=== PATIENT | female | born 1935 | race Two or more races ===

== ENCOUNTER 2017-01-28 21:24 | Inpatient (IN) | payer MEDICAID ==
[~2017-01-28] VITALS: Ht 165.1 cm; Wt 92.5 kg
[~2017-01-28 21:24] MED LIST: AMITRIPTYLINE H25 MG ORAL; ATORVASTATIN CA20 MG ORAL; CAPTOPRIL25 M1 PO; FOLIC ACID1 MG ORAL; LEVOXINE PO; METFORMIN HCL500 M1 ORAL; NOVOLIN N100 UNIT/1 SUBQ; SPIRONOLACTONE25 MG PO; TENORMIN50 MG ORAL
--- NOTE | 2017-01-28 21:44 | Emergency Room Report ---
History of Present Illness General Chief Complaint: Altered Level of Consciousness Source: Family Member, EMS Present Illness HPI Is an 81-year-old female with multiple medical problems including CAD with stents, diabetes, frequent infection. She presents with altered mental status. Onset this afternoon. More confused her daughter. Decreased appetite. No nausea no vomiting. No fever or chills. No focal deficit. Blood sugar was very high at home. Per EMS over 400. Allergies: Coded Allergies: No Known Allergies (Unverified , 12/23/12) Patient History Past Medical History: see triage record, old chart reviewed, DM, HTN Past Surgical History: other Pertinent Family History: none Social History: Denies: smoking Last Menstrual Period: n/a Now: No Immunizations: other Reviewed Nursing Documentation: PMH: Agreed, PSxH: Agreed Nursing Documentation-PMH Hx Cardiac Problems: Yes - stents Hx Hypertension: Yes Hx Diabetes: Yes Review of Systems Constitutional: Reports: malaise, weakness Eye: Denies: eye pain, blurred vision ENT: Denies: ear pain, nose congestion, throat swelling Respiratory: Denies: cough, shortness of breath Cardiovascular: Denies: chest pain, palpitations Gastrointestinal: Denies: abdominal pain, diarrhea, nausea, vomiting Musculoskeletal: Denies: back pain, joint pain Skin: Denies: rash Neurological: Denies: headache, numbness Endocrine: Denies: increased thirst, increased urine Hematologic/Lymphatic: Denies: easy bruising All Other Systems: negative except mentioned in HPI Physical Exam Vital Signs Date Time Temp Pulse Resp B/P (MAP) Pulse Ox O2 Delivery O2 Flow Rate FiO2 01/28/17 21:18 98.8 112 16 116/86 98 Room Air vitals with tachycardia Sp02 EP Interpretation: reviewed, normal General Appearance: well appearing, other - Ill-appearing Head: normocephalic, atraumatic Eyes: bilateral eye PERRL, bilateral eye EOMI ENT: hearing grossly normal, normal pharynx Neck: full range of motion, supple, no meningismus Respiratory: chest non-tender, lungs clear, normal breath sounds Cardiovascular #1: regular rate, rhythm, no murmur Gastrointestinal: normal bowel sounds, non tender, no mass, no organomegaly, no bruit, non-distended Musculoskeletal: back normal, normal range of motion Neurologic: grossly normal Psychiatric: mood/affect normal Skin: warm/dry Medical Decision Making Diagnostic Impression: Primary Impression: Altered level of consciousness Additional Impressions: Encephalopathy acute Hyperglycemia due to type 1 diabetes mellitus Lactic acid acidosis ER Course Patient presents with an altered mental status. This may be secondary to elevated glucose. no evidence of DKA. She may have infectious cause like a viral infection. No obvious bacterial infection. Lungs are clear. Her analysis negative. No evidence of acute abdomen. IV fluid given. Will repeat lactic acid. CT head negative. I discussed the case with primary care DrRodriguez who doesn't admit here anymore. Patient emitted to Dr. Headley. Lab Results Impression labs with elevated glucose and lactic acid. EKG Diagnostic Results Rate: normal Rhythm: NSR ST Segments: no acute changes Rhythm Strip Diag. Results Rhythm Strip Time: 21:44 EP Interpretation: yes Rate: 100 Rhythm: NSR, no PVC's, no ectopy Chest X-Ray Diagnostic Results Chest X-Ray Diagnostic Results : Chest X-Ray Ordered: Yes # of Views/Limited/Complete: 1 View Indication: Shortness of Breath EP Interpretation: Yes Interpretation: no consolidation, no effusion, no pneumothorax, no acute cardiopulmonary disease Impression: No acute disease Electronically Signed by: Electronically signed by Shayne Moncada MD CT/MRI/US Diagnostic Results CT/MRI/US Diagnostic Results : Imaging Test Ordered: CT head Impression read by radiologist as negative. Atrophy. Last Vital Signs Date Time Temp Pulse Resp B/P (MAP) Pulse Ox O2 Delivery O2 Flow Rate FiO2 01/28/17 21:18 98.8 112 16 116/86 98 Room Air Status: improved Disposition: ADMITTED INPATIENT Condition: Serious SHAYNE MONCADA M.D. Jan 28, 2017 21:44
[2017-01-28] MEDS ORDERED: NS 1000ml 2,900 ML IVLG ONE (21:45)
[2017-01-28 22:07] LABS: BASOPHILS % (AUTO) 0.3 % (0.0-2.0); LYMPHOCYTES % (AUTO) 9.4 % (20.0-45.0); MEAN CORPUSCULAR HEMOGLOBIN 23.2 PG (27.0-31.0); MEAN CORPUSCULAR VOLUME 77 FL (80-99); MEAN PLATELET VOLUME 6.4 FL (6.5-10.1); MONOCYTES % (AUTO) 6.6 % (1.0-10.0); NEUTROPHILS % (AUTO) 83.7 % (45.0-75.0); PLATELET COUNT 298 K/UL (150-450); RED BLOOD COUNT 3.97 M/UL (4.20-5.40); RED CELL DISTRIBUTION WIDTH 13.2 % (11.6-14.8); WHITE BLOOD COUNT 9.8 K/UL (4.8-10.8)
[2017-01-28] MEDS ORDERED: CLARITIN10 M2 ORAL (22:19)
[2017-01-28] MEDS ORDERED: AMITIZA24 MCG ORAL (22:19)
[2017-01-28] MEDS ORDERED: ATORVASTATIN CA40 MG ORAL (22:19)
[2017-01-28] MEDS ORDERED: CITALOPRAM HBR40 M1 ORAL (22:19)
[2017-01-28] MEDS ORDERED: CALMOSEPTINE O3.5 G1 TP (22:19)
[2017-01-28] MEDS ORDERED: AMBIEN5 MG ORAL (22:19)
[2017-01-28 22:24] LABS: INR 0.9 (0.9-1.1); PROTHROMBIN TIME 9.9 SEC (9.30-11.50)
[2017-01-28 22:31] LABS: TROPONIN I < 0.30 ng/mL (<=0.30)
[2017-01-28 22:35] LABS: ALANINE AMINOTRANSFERASE 11 U/L (3-33); ALBUMIN/GLOBULIN RATIO 1.5 (1.0-2.7); ANION GAP 15 (5-15); ASPARTATE AMINO TRANSFERASE 12 U/L (5-40); CARBON DIOXIDE 26 mEQ/L (20-30); CHLORIDE 94 mEQ/L (98-107); CREATININE 0.9 mg/dL (0.5-0.9); HEMOLYSIS 0; POTASSIUM 4.6 mEQ/L (3.4-4.9); SODIUM 135 mEQ/L (135-145); TOTAL PROTEIN 6.5 g/dL (6.6-8.7)
[2017-01-28 22:37] LABS: REFLEX LACTIC ACID YES OR NO YES
[2017-01-28 22:45] LABS: CKMB 1.7 ng/mL (< 3.8)
[2017-01-28 22:54] VITALS: BP 138/56
[2017-01-28 23:02] LABS: APPEARANCE,URINE CLEAR; KETONES,URINE NEGATIVE (NEGATIVE); LEUKOCYTE ESTERASE ,URINE 1+ (NEGATIVE); NITRITE,URINE NEGATIVE (NEGATIVE); PH,URINE 6.5 (4.5-8.0); PROTEIN,URINE NEGATIVE (NEGATIVE); UROBILINOGEN,URINE NORMAL MG/DL (0.0-1.0)
[2017-01-28] MEDS ORDERED: DOXEPIN HCL25 MG ORAL (23:13)
[2017-01-28] MEDS ORDERED: MAGNESIUM400 M2 PO (23:13)
[2017-01-28] MEDS ORDERED: IRON160 MG PO (23:13)
[2017-01-28] MEDS ORDERED: JANUVIA25 MG ORAL (23:13)
[2017-01-28] MEDS ORDERED: FLUOCINOLONE AC15 G1 TP (23:13)
[2017-01-28] MEDS ORDERED: FUROSEMIDE20 M1 ORAL (23:13)
[2017-01-28] MEDS ORDERED: ISOSORBIDE MONO10 MG PO (23:13)
[2017-01-28] MEDS ORDERED: METFORMIN HCL1000 M1 ORAL (23:13)
[2017-01-28] MEDS ORDERED: KONDREMUL2.5 ML/5 M PO (23:13)
[2017-01-28] MEDS ORDERED: MICARDIS80 MG ORAL (23:13)
[2017-01-28] MEDS ORDERED: LEVOXYL150 MCG ORAL (23:13)
[2017-01-28] MEDS ORDERED: TEMOVATE15 G1 TP (23:13)
[2017-01-28] MEDS ORDERED: LIPITOR20 MG ORAL (23:13)
[2017-01-28] MEDS ORDERED: MIRALAX17 G2 ORAL (23:13)
[2017-01-28] MEDS ORDERED: ECOTRIN325 MG ORAL (23:13)
[2017-01-28] MEDS ORDERED: TRESIBA FL100 UNIT/1 SQ (23:13)
[2017-01-28] MEDS ORDERED: FOLIC ACID1 MG ORAL (23:13)
[2017-01-28] MEDS ORDERED: STARLIX60 MG ORAL (23:13)
[2017-01-28] MEDS ORDERED: NITROGLYCERIN0.4 MG SL (23:13)
[2017-01-28] MEDS ORDERED: DICLOFENAC SODI50 MG ORAL (23:13)
[2017-01-28 23:15] LABS: BACTERIA,URINE FEW /HPF; RBC,URINE 0-2 /HPF (0 - 2); SQUAMOUS EPITHELIAL CELL,UR FEW /LPF (NONE/OCC)
[2017-01-29 00:57] VITALS: BP 157/86
[2017-01-29] MEDS ORDERED: Calmoseptine Oint 4oz TOPIC PRN (01:00)
[2017-01-29] MEDS ORDERED: Nitroglycerin Subl 0.4mg tab SL PRN (01:00)
[2017-01-29] MEDS ORDERED: Miralax 17gm pkt ORAL PRN (01:00)
[2017-01-29 04:00] VITALS: BP 136/72
[2017-01-29] MEDS ORDERED: NovoLOG Insulin Flexpen SUBQ SCH (06:30)
--- NOTE | 2017-01-29 07:51 | General Progress Note ---
Assessment/Plan Problem List: (1) Lactic acid acidosis ICD Codes: E87.2 - Acidosis SNOMED: 10611668 (2) Altered level of consciousness ICD Codes: R40.4 - Transient alteration of awareness SNOMED: 5197391 (3) Hyperglycemia due to type 1 diabetes mellitus ICD Codes: E10.65 - Type 1 diabetes mellitus with hyperglycemia SNOMED: 469300483390341, 52261154 (4) Encephalopathy acute ICD Codes: G93.40 - Encephalopathy, unspecified SNOMED: 8843871 Status Narrative start Levemir 24 units daily start Novolog 8 units ac tid + SSI do not use Metformin in the context of lactic acidosis Subjective Allergies: Coded Allergies: No Known Allergies (Unverified , 12/23/12) All Systems: reviewed and negative except above Subjective Is an 81-year-old female with multiple medical problems including CAD with stents, diabetes, frequent infection. She presents with altered mental status. Onset this afternoon. More confused her daughter. Decreased appetite. No nausea no vomiting. No fever or chills. No focal deficit. Blood sugar was very high at home. Per EMS over 400. she is currently alert and able to answer questions per admission med list reviewed she's been on insulin for the past 40 years Objective Last 24 Hour Vital Signs Date Time Temp Pulse Resp B/P (MAP) Pulse Ox O2 Delivery O2 Flow Rate FiO2 01/29/17 01:31 98.8 91 18 157/86 98 Room Air 01/29/17 00:57 91 18 157/86 98 Room Air 01/28/17 22:54 98.8 95 15 138/56 99 Room Air 01/28/17 21:18 98.8 112 16 116/86 98 Room Air Laboratory Tests 01/28/17 21:40: White Blood Count 9.8, Red Blood Count 3.97L, Hemoglobin 9.2L, Hematocrit 30.7L , Mean Corpuscular Volume 77L, Mean Corpuscular Hemoglobin 23.2L, Mean Corpuscular Hemoglobin Concent 30.0L, Red Cell Distribution Width 13.2, Platelet Count 298, Mean Platelet Volume 6.4L, Neutrophils (%) (Auto) 83.7H, Lymphocytes (%) (Auto) 9.4L, Monocytes (%) (Auto) 6.6, Eosinophils (%) (Auto) 0.0, Basophils (%) (Auto) 0.3, Prothrombin Time 9.9, Prothromb Time International Ratio 0.9, Activated Partial Thromboplast Time 26, Sodium Level 135, Potassium Level 4.6, Chloride Level 94L, Carbon Dioxide Level 26, Anion Gap 15, Blood Urea Nitrogen 16, Creatinine 0.9, Estimat Glomerular Filtration Rate , Glucose Level 400H, Lactic Acid Level 5.40H, Calcium Level 9.0, Total Bilirubin 0.2, Aspartate Amino Transf (AST/SGOT) 12, Alanine Aminotransferase ( ALT/SGPT) 11, Alkaline Phosphatase 111H, Total Creatine Kinase 43, Creatine Kinase MB 1.7, Creatine Kinase MB Relative Index 3.9, Troponin I < 0.30, Total Protein 6.5L, Albumin 3.9, Globulin 2.6, Albumin/Globulin Ratio 1.5 01/28/17 22:15: Urine Color Pale yellow, Urine Appearance Clear, Urine pH 6.5, Urine Specific [place] 1.010, Urine Protein Negative, Urine Glucose (UA) 4+H, Urine Ketones Negative, Urine Occult Blood Negative, Urine Nitrite Negative, Urine Bilirubin Negative, Urine Urobilinogen Normal, Urine Leukocyte Esterase 1+H, Urine RBC 0-2 , Urine WBC 2-4, Urine Squamous Epithelial Cells Few, Urine Bacteria Few 01/29/17 00:10: Lactic Acid Level 4.10H Height (Feet): 5 Height (Inches): 5.00 Weight (Pounds): 204 General Appearance: no apparent distress Neck: normal alignment Cardiovascular: normal rate Respiratory/Chest: lungs clear Abdomen: normal bowel sounds Pelvis: normal external exam Edema: 1+ Arm (L), 1+ Arm (R), 1+ Leg (L), 1+ Leg (R), 1+ Pedal (L), 1+ Pedal ( R), 1+ Generalized Objective Current Medications Medications (Trade) Dose Ordered Sig/Lorena Route PRN Reason Start Time Stop Time Status Last Admin Dose Admin Acetaminophen (Tylenol) 650 mg Q4H PRN ORAL Mild Pain/Temp > 100.5 01/29/17 00:30 02/28/17 00:29 Aspirin (Ecotrin) 81 mg DAILY ORAL 01/29/17 09:00 02/28/17 08:59 Atorvastatin Calcium (Lipitor) 20 mg BEDTIME ORAL 01/29/17 21:00 02/28/17 20:59 UNV Atorvastatin Calcium (Lipitor) 40 mg BEDTIME ORAL 01/29/17 21:00 02/28/17 20:59 Citalopram Hydrobromide (celeXA) 40 mg DAILY ORAL 01/29/17 09:00 02/28/17 08:59 Clobetasol Propionate (Temovate) 1 applic TWICE A DAY TOPIC 01/29/17 09:00 02/28/17 08:59 Diclofenac Sodium (Voltaren) 50 mg THREE TIMES A DAY ORAL 01/29/17 09:00 02/28/17 08:59 Doxepin HCl (SINEquan) 25 mg DAILY ORAL 01/29/17 09:00 02/28/17 08:59 Ferrous Sulfate (Feosol) 160 mg THREE TIMES A DAY ORAL 01/29/17 09:00 02/28/17 08:59 Fluocinolone Acetonide (Synalar) 1 applic THREE TIMES A DAY TOPIC 01/29/17 09:00 02/28/17 08:59 Insulin Aspart (NovoLOG) 7 units NOVOTIAC SUBQ 01/29/17 06:30 02/28/17 06:29 01/29/17 06:40 Isosorbide Mononitrate (Imdur) 40 mg DAILY ORAL 01/29/17 09:00 02/28/17 08:59 UNV Lubiprostone (Amitiza) 8 mcg TWICE A DAY ORAL 01/29/17 09:00 02/28/17 08:59 UNV Magnesium Oxide (Mag-Ox 400mg) 400 mg FOUR TIMES A DAY ORAL 01/29/17 09:00 02/28/17 08:59 Menthol (Calmoseptine) 1 applic BID PRN TOPIC Itching 01/29/17 01:00 02/28/17 00:59 Metformin HCl (Glucophage) 1,000 mg DAILY ORAL 01/29/17 09:00 02/28/17 08:59 Nateglinide (Starlix) 120 mg BID ORAL 01/29/17 09:00 02/28/17 08:59 Nitroglycerin (Ntg) 0.4 mg Q5M PRN SL Prn Chest Pain 01/29/17 01:00 02/28/17 00:59 Polyethylene Glycol (Miralax) 17 gm DAILY PRN ORAL Constipation 01/29/17 01:00 02/28/17 00:59 Sitagliptin Phosphate (Januvia) 100 mg ACBREAKFAST ORAL 01/29/17 06:30 02/28/17 06:29 01/29/17 06:35 Zolpidem Tartrate (Ambien) 5 mg HSPRN PRN ORAL Insomnia 01/29/17 01:00 02/05/17 00:59 Item Value Date Time Bedside Blood Glucose 169 mg/dl H 01/29/17 0640 Bedside Blood Glucose 207 mg/dl H 01/29/17 0121 Bedside Blood Glucose 391 mg/dl H 01/28/175 AUSTYN GARCIA Jan 29, 2017 07:51
[2017-01-29 08:00] VITALS: BP 151/62
[2017-01-29 08:35] LABS: BASOPHILS % (AUTO) 0.6 % (0.0-2.0); EOSINOPHILS % (AUTO) 0.1 % (0.0-3.0); LYMPHOCYTES % (AUTO) 13.7 % (20.0-45.0); MEAN CORPUSCULAR HEMOGLOBIN 24.5 PG (27.0-31.0); MEAN CORPUSCULAR HGB CONC 32.3 G/DL (32.0-36.0); MEAN CORPUSCULAR VOLUME 76 FL (80-99); MEAN PLATELET VOLUME 6.3 FL (6.5-10.1); MONOCYTES % (AUTO) 5.5 % (1.0-10.0); NEUTROPHILS % (AUTO) 80.2 % (45.0-75.0); PLATELET COUNT 300 K/UL (150-450); RED BLOOD COUNT 3.67 M/UL (4.20-5.40); WHITE BLOOD COUNT 9.4 K/UL (4.8-10.8)
[2017-01-29 08:47] LABS: ALANINE AMINOTRANSFERASE 10 U/L (3-33); ALBUMIN/GLOBULIN RATIO 1.4 (1.0-2.7); ANION GAP 10 (5-15); ASPARTATE AMINO TRANSFERASE 13 U/L (5-40); CALCIUM 9.3 mg/dL (8.6-10.2); CARBON DIOXIDE 28 mEQ/L (20-30); CHLORIDE 101 mEQ/L (98-107); CREATININE 0.6 mg/dL (0.5-0.9); HEMOLYSIS 0; POTASSIUM 4.3 mEQ/L (3.4-4.9); SODIUM 139 mEQ/L (135-145); TOTAL PROTEIN 6.4 g/dL (6.6-8.7)
[2017-01-29] MEDS: Clobetasol Cream 0.05% 15gm TOPIC SCH ×2 (09:00→18:00)
[2017-01-29] MEDS ORDERED: metFORMIN 500mg tab ORAL SCH (09:00)
[2017-01-29] MEDS ORDERED: Amitiza 24mcg cap ORAL SCH (09:00)
[2017-01-29] MEDS: FLUOCINOLONE 0.01% TOPIC SCH ×2 (09:00→13:00)
[2017-01-29] MEDS: Aspirin EC 81mg tab ORAL SCH (10:11)
[2017-01-29] MEDS: Magnesium Oxide 400mg tab ORAL SCH ×4 (10:11→20:30)
[2017-01-29] MEDS: Citalopram 20mg Tab ORAL SCH (10:11)
[2017-01-29] MEDS: Doxepin 25mg Cap ORAL SCH (10:24)
--- NOTE | 2017-01-29 10:26 | Diagnostic Imaging Report ---
Indication: Altered mental status Technique: Contiguous 5 mm thick transaxial imaging of the head obtained in a Siemens Sensation [address] scanner. Soft tissue and bone windows generated. Total Dose length Product (DLP): [address] Dose Index Volume (CTDIvol): 70.38, 0.15 mGy Comparison: none Findings: There is moderate prominence of the ventricles, basal cisterns, and cerebral sulci consistent with atrophy. Moderate, nonspecific, white matter hypoattenuation is noted throughout the brain consistent with chronic small vessel disease. There is no midline shift, edema, acute hemorrhage, mass effect, or abnormal extra-axial fluid collections. Bones and extra osseous soft tissues are unremarkable. Impression: No acute intracranial bleed, mass effect or edema. Moderate atrophy of the brain. Evidence of chronic small vessel disease involving white matter tracts. Dr. Gan has communicated the preliminary results to the Emergency Department. There are no significant discrepancies. The CT scanner at [facility] is accredited by the [employer] and the scans are performed using dose optimization techniques as appropriate to a performed exam including Automatic Exposure control.
--- NOTE | 2017-01-29 10:48 | Diagnostic Imaging Report ---
Indication: Dyspnea Comparison: 12/15/12 A single view chest radiograph was obtained. Findings: There is mild prominence of the colon vascular interstitium. Heart is enlarged. Bones are osteopenic. Impression: Interstitial edema suspected
[2017-01-29] MEDS: Levemir Flexpen SUBQ SCH (11:00)
[2017-01-29 12:00] VITALS: BP 148/116
--- NOTE | 2017-01-29 12:29 | Neurology Progress Note ---
Objective Physical Exam Last Vital Signs Date Time Temp Pulse Resp B/P (MAP) Pulse Ox O2 Delivery O2 Flow Rate FiO2 01/29/17 08:00 98.2 78 20 151/62 97 Room Air Laboratory Tests Test 01/28/17 21:40 01/28/17 22:15 01/29/17 00:10 01/29/17 07:25 White Blood Count 9.8 K/UL (4.8-10.8) 9.4 K/UL (4.8-10.8) Red Blood Count 3.97 M/UL (4.20-5.40) L 3.67 M/UL (4.20-5.40) L Hemoglobin 9.2 G/DL (12.0-16.0) L 9.0 G/DL (12.0-16.0) L Hematocrit 30.7 % (37.0-47.0) L 27.9 % (37.0-47.0) L Mean Corpuscular Volume 77 FL (80-99) L 76 FL (80-99) L Mean Corpuscular Hemoglobin 23.2 PG (27.0-31.0) L 24.5 PG (27.0-31.0) L Mean Corpuscular Hemoglobin Concent 30.0 G/DL (32.0-36.0) L 32.3 G/DL (32.0-36.0) Red Cell Distribution Width 13.2 % (11.6-14.8) 13.0 % (11.6-14.8) Platelet Count 298 K/UL (150-450) 300 K/UL (150-450) Mean Platelet Volume 6.4 FL (6.5-10.1) L 6.3 FL (6.5-10.1) L Neutrophils (%) (Auto) 83.7 % (45.0-75.0) H 80.2 % (45.0-75.0) H Lymphocytes (%) (Auto) 9.4 % (20.0-45.0) L 13.7 % (20.0-45.0) L Monocytes (%) (Auto) 6.6 % (1.0-10.0) 5.5 % (1.0-10.0) Eosinophils (%) (Auto) 0.0 % (0.0-3.0) 0.1 % (0.0-3.0) Basophils (%) (Auto) 0.3 % (0.0-2.0) 0.6 % (0.0-2.0) Prothrombin Time 9.9 SEC (9.30-11.50) Prothromb Time International Ratio 0.9 (0.9-1.1) Activated Partial Thromboplast Time 26 SEC (23-33) Sodium Level 135 mEQ/L (135-145) 139 mEQ/L (135-145) Potassium Level 4.6 mEQ/L (3.4-4.9) 4.3 mEQ/L (3.4-4.9) Chloride Level 94 mEQ/L (98-107) L 101 mEQ/L (98-107) Carbon Dioxide Level 26 mEQ/L (20-30) 28 mEQ/L (20-30) Anion Gap 15 (5-15) 10 (5-15) Blood Urea Nitrogen 16 mg/dL (7-23) 9 mg/dL (7-23) Creatinine 0.9 mg/dL (0.5-0.9) 0.6 mg/dL (0.5-0.9) Estimat Glomerular Filtration Rate mL/min (>60) mL/min (>60) Glucose Level 400 mg/dL (74-106) H 151 mg/dL (74-106) #H Lactic Acid Level 5.40 mmol/L (0.66-2.22) H 4.10 mmol/L (0.66-2.22) H Calcium Level 9.0 mg/dL (8.6-10.2) 9.3 mg/dL (8.6-10.2) Total Bilirubin 0.2 mg/dL (0.0-1.2) 0.2 mg/dL (0.0-1.2) Aspartate Amino Transf (AST/SGOT) 12 U/L (5-40) 13 U/L (5-40) Alanine Aminotransferase (ALT/SGPT) 11 U/L (3-33) 10 U/L (3-33) Alkaline Phosphatase 111 U/L (35-104) H 108 U/L (35-104) H Total Creatine Kinase 43 U/L (26-140) Creatine Kinase MB 1.7 ng/mL (< 3.8) Creatine Kinase MB Relative Index 3.9 Troponin I < 0.30 ng/mL (<=0.30) Total Protein 6.5 g/dL (6.6-8.7) L 6.4 g/dL (6.6-8.7) L Albumin 3.9 g/dL (3.5-5.2) 3.8 g/dL (3.5-5.2) Globulin 2.6 g/dL 2.6 g/dL Albumin/Globulin Ratio 1.5 (1.0-2.7) 1.4 (1.0-2.7) Urine Color Pale yellow Urine Appearance Clear Urine pH 6.5 (4.5-8.0) Urine Specific [place] 1.010 (1.005-1.035) Urine Protein Negative (NEGATIVE) Urine Glucose (UA) 4+ (NEGATIVE) H Urine Ketones Negative (NEGATIVE) Urine Occult Blood Negative (NEGATIVE) Urine Nitrite Negative (NEGATIVE) Urine Bilirubin Negative (NEGATIVE) Urine Urobilinogen Normal MG/DL (0.0-1.0) Urine Leukocyte Esterase 1+ (NEGATIVE) H Urine RBC 0-2 /HPF (0 - 2) Urine WBC 2-4 /HPF (0 - 2) Urine Squamous Epithelial Cells Few /LPF (NONE/OCC) Urine Bacteria Few /HPF (NONE) Hemoglobin A1c 10.0 % (< 6.0) H Impression/Recommendations Recommendations #[id number] JEMAL CALHOUN Jan 29, 2017 12:29
[2017-01-29] MEDS: NovoLOG Insulin Flexpen SUBQ SCH ×2 (13:43→17:25)
--- NOTE | 2017-01-29 15:16 | Infectious Diseases Prog Note ---
Assessment/Plan Problems: (1) Altered level of consciousness Assessment & Plan: rule out infectious etiology , will send blood culture and [place] virus serology , continue neuro check, start vancomycin and ceftriaxon empirically (2) Hyperglycemia due to type 1 diabetes mellitus Assessment & Plan: poorly controlled, recommend tight glycemic control to keep blood glucose between 80-120 (3) Lactic acid acidosis Assessment & Plan: unclear etiology , continue hydration and insulin to keep blood glucose well controlled, monitor lactic acid level Subjective Allergies: Coded Allergies: No Known Allergies (Unverified , 12/23/12) Objective Vital Signs Last 24 Hour Vital Signs Date Time Temp Pulse Resp B/P (MAP) Pulse Ox O2 Delivery O2 Flow Rate FiO2 01/29/17 14:40 98.2 01/29/17 12:54 151/62 01/29/17 12:00 97.3 87 20 148/116 98 Room Air 01/29/17 08:00 98.2 78 20 151/62 97 Room Air 01/29/17 04:00 98.8 96 20 136/72 97 Room Air 01/29/17 01:31 98.8 91 18 157/86 98 Room Air 01/29/17 00:57 91 18 157/86 98 Room Air 01/28/17 22:54 98.8 95 15 138/56 99 Room Air 01/28/17 21:18 98.8 112 16 116/86 98 Room Air Height (Feet): 5 Height (Inches): 5.00 Weight (Pounds): 204 Laboratory Tests Test 01/28/17 21:40 01/28/17 22:15 01/29/17 00:10 01/29/17 07:25 White Blood Count 9.8 K/UL (4.8-10.8) 9.4 K/UL (4.8-10.8) Red Blood Count 3.97 M/UL (4.20-5.40) L 3.67 M/UL (4.20-5.40) L Hemoglobin 9.2 G/DL (12.0-16.0) L 9.0 G/DL (12.0-16.0) L Hematocrit 30.7 % (37.0-47.0) L 27.9 % (37.0-47.0) L Mean Corpuscular Volume 77 FL (80-99) L 76 FL (80-99) L Mean Corpuscular Hemoglobin 23.2 PG (27.0-31.0) L 24.5 PG (27.0-31.0) L Mean Corpuscular Hemoglobin Concent 30.0 G/DL (32.0-36.0) L 32.3 G/DL (32.0-36.0) Red Cell Distribution Width 13.2 % (11.6-14.8) 13.0 % (11.6-14.8) Platelet Count 298 K/UL (150-450) 300 K/UL (150-450) Mean Platelet Volume 6.4 FL (6.5-10.1) L 6.3 FL (6.5-10.1) L Neutrophils (%) (Auto) 83.7 % (45.0-75.0) H 80.2 % (45.0-75.0) H Lymphocytes (%) (Auto) 9.4 % (20.0-45.0) L 13.7 % (20.0-45.0) L Monocytes (%) (Auto) 6.6 % (1.0-10.0) 5.5 % (1.0-10.0) Eosinophils (%) (Auto) 0.0 % (0.0-3.0) 0.1 % (0.0-3.0) Basophils (%) (Auto) 0.3 % (0.0-2.0) 0.6 % (0.0-2.0) Prothrombin Time 9.9 SEC (9.30-11.50) Prothromb Time International Ratio 0.9 (0.9-1.1) Activated Partial Thromboplast Time 26 SEC (23-33) Sodium Level 135 mEQ/L (135-145) 139 mEQ/L (135-145) Potassium Level 4.6 mEQ/L (3.4-4.9) 4.3 mEQ/L (3.4-4.9) Chloride Level 94 mEQ/L (98-107) L 101 mEQ/L (98-107) Carbon Dioxide Level 26 mEQ/L (20-30) 28 mEQ/L (20-30) Anion Gap 15 (5-15) 10 (5-15) Blood Urea Nitrogen 16 mg/dL (7-23) 9 mg/dL (7-23) Creatinine 0.9 mg/dL (0.5-0.9) 0.6 mg/dL (0.5-0.9) Estimat Glomerular Filtration Rate mL/min (>60) mL/min (>60) Glucose Level 400 mg/dL (74-106) H 151 mg/dL (74-106) #H Lactic Acid Level 5.40 mmol/L (0.66-2.22) H 4.10 mmol/L (0.66-2.22) H Calcium Level 9.0 mg/dL (8.6-10.2) 9.3 mg/dL (8.6-10.2) Total Bilirubin 0.2 mg/dL (0.0-1.2) 0.2 mg/dL (0.0-1.2) Aspartate Amino Transf (AST/SGOT) 12 U/L (5-40) 13 U/L (5-40) Alanine Aminotransferase (ALT/SGPT) 11 U/L (3-33) 10 U/L (3-33) Alkaline Phosphatase 111 U/L (35-104) H 108 U/L (35-104) H Total Creatine Kinase 43 U/L (26-140) Creatine Kinase MB 1.7 ng/mL (< 3.8) Creatine Kinase MB Relative Index 3.9 Troponin I < 0.30 ng/mL (<=0.30) Total Protein 6.5 g/dL (6.6-8.7) L 6.4 g/dL (6.6-8.7) L Albumin 3.9 g/dL (3.5-5.2) 3.8 g/dL (3.5-5.2) Globulin 2.6 g/dL 2.6 g/dL Albumin/Globulin Ratio 1.5 (1.0-2.7) 1.4 (1.0-2.7) Urine Color Pale yellow Urine Appearance Clear Urine pH 6.5 (4.5-8.0) Urine Specific [place] 1.010 (1.005-1.035) Urine Protein Negative (NEGATIVE) Urine Glucose (UA) 4+ (NEGATIVE) H Urine Ketones Negative (NEGATIVE) Urine Occult Blood Negative (NEGATIVE) Urine Nitrite Negative (NEGATIVE) Urine Bilirubin Negative (NEGATIVE) Urine Urobilinogen Normal MG/DL (0.0-1.0) Urine Leukocyte Esterase 1+ (NEGATIVE) H Urine RBC 0-2 /HPF (0 - 2) Urine WBC 2-4 /HPF (0 - 2) Urine Squamous Epithelial Cells Few /LPF (NONE/OCC) Urine Bacteria Few /HPF (NONE) Hemoglobin A1c 10.0 % (< 6.0) H Current Medications Medications (Trade) Dose Ordered Sig/Lorena Route PRN Reason Start Time Stop Time Status Last Admin Dose Admin Acetaminophen (Tylenol) 650 mg Q4H PRN ORAL Mild Pain/Temp > 100.5 01/29/17 00:30 02/28/17 00:29 Aspirin (Ecotrin) 81 mg DAILY ORAL 01/29/17 09:00 02/28/17 08:59 01/29/17 10:11 Atorvastatin Calcium (Lipitor) 40 mg BEDTIME ORAL 01/29/17 21:00 02/28/17 20:59 Citalopram Hydrobromide (celeXA) 40 mg DAILY ORAL 01/29/17 09:00 02/28/17 08:59 01/29/17 10:11 Clobetasol Propionate (Temovate) 1 applic TWICE A DAY TOPIC 01/29/17 09:00 02/28/17 08:59 Dextrose (Dextrose 50%) STAT PRN IV Hypoglycemia 01/29/17 08:00 02/28/17 07:59 Diclofenac Sodium (Voltaren) 50 mg THREE TIMES A DAY ORAL 01/29/17 09:00 02/28/17 08:59 01/29/17 13:41 Doxepin HCl (SINEquan) 25 mg DAILY ORAL 01/29/17 09:00 02/28/17 08:59 01/29/17 10:24 Ferrous Sulfate (Feosol) 160 mg THREE TIMES A DAY ORAL 01/29/17 09:00 02/28/17 08:59 01/29/17 12:54 Insulin Aspart (NovoLOG) 8 units NOVOTIAC SUBQ 01/29/17 11:50 02/28/17 11:49 01/29/17 13:43 Insulin Detemir (Levemir) 24 units DAILY SUBQ 01/29/17 11:00 02/28/17 10:59 01/29/17 11:00 Isosorbide Dinitrate (Isordil) 10 mg Q6HR ORAL 01/29/17 12:00 11/3/17 11:59 01/29/17 12:54 Magnesium Oxide (Mag-Ox 400mg) 400 mg FOUR TIMES A DAY ORAL 01/29/17 09:00 02/28/17 08:59 01/29/17 12:54 Menthol (Calmoseptine) 1 applic BID PRN TOPIC Itching 01/29/17 01:00 02/28/17 00:59 Nateglinide (Starlix) 120 mg BID ORAL 01/29/17 09:00 02/28/17 08:59 01/29/17 10:09 Nitroglycerin (Ntg) 0.4 mg Q5M PRN SL Prn Chest Pain 01/29/17 01:00 02/28/17 00:59 Polyethylene Glycol (Miralax) 17 gm DAILY PRN ORAL Constipation 01/29/17 01:00 02/28/17 00:59 Sitagliptin Phosphate (Januvia) 100 mg ACBREAKFAST ORAL 01/29/17 06:30 02/28/17 06:29 01/29/17 06:35 Zolpidem Tartrate (Ambien) 5 mg HSPRN PRN ORAL Insomnia 01/29/17 01:00 02/05/17 00:59 Torrie Singh M.D. Jan 29, 2017 15:16
[2017-01-29] MEDS ORDERED: Vancomycin 1250mg/D5W 250ml IVPB ONE (17:00)
[2017-01-29] MEDS: cefTRIAXone 2 GM in D5W 110 ML IVPB SCH (17:23)
[2017-01-29 20:00] VITALS: BP 128/54
[2017-01-29] MEDS: Zolpidem 5mg tab ORAL PRN (20:32)
[2017-01-29] MEDS ORDERED: Atorvastatin 20mg tab ORAL SCH (21:00)
--- NOTE | 2017-01-29 23:45 | History and Physical Report ---
DATE OF ADMISSION: 01/28/2017 History of Present Illness: The patient is admitted for altered mental status/possible encephalopathy due to uncontrolled blood sugar. The patient also needs to be ruled out of UTI. The patient is confused, cannot get reliable history at this point in time, however, denies pain. Denies shortness of breath. No nausea, vomiting, or diarrhea. No fever or chills. Denies headache. No diplopia. Past Medical History: Organic brain syndrome, NIDDM, hypertension, hyperlipidemia, mood disorder, iron deficiency anemia, constipation, insomnia, and hypothyroidism. PAST SURGICAL HISTORY: None. Medications: Aspirin, Lipitor, atenolol, ferrous sulfate, insulin, Januvia, spironolactone, Micardis, and Levoxyl. ALLERGIES: No known allergies. Social History: Unable to obtain. denies history of smoking, alcohol, or illicit drugs. FAMILY HISTORY: Unable to obtain. Review of Systems: HEENT: Denies headaches. Respiratory: Denies shortness of breath. Denies cough. Cardiovascular: Denies chest pain. Gastrointestinal: Denies nausea, vomiting, or diarrhea. Extremities: Denies pain. Central Nervous System: No change in vision or speech pattern; however, the patient is confused. PHYSICAL EXAMINATION: Vital Signs: At this point, temperature is 98.8 degrees, pulse is 95, and blood pressure is 138/66. HEENT: PERRLA. NECK: Supple. No lymphadenopathy. CHEST: Clear to auscultation. Gastrointestinal: Soft, nontender, and nondistended. No organomegaly. EXTREMITIES: No edema. Moves all four extremities. Neurologic: Sensation intact to light touch. Reflexes equal on both sides. Oriented to name only. No pain. No edema. Laboratory Data: WBC of 9.8, hemoglobin 9.2, and platelets of 298,000. Sodium 139, potassium 4.3, and glucose of 151. Lactic acid of 5.4. ASSESSMENT AND PLAN: 1. Uncontrolled diabetes mellitus. 2. Encephalopathy. 3. Confusion. 4. Rule out urinary tract infection. I have asked Dr. Arguello, Dr. Renee, Dr. Kramer, and Dr. Singh to see the patient for altered mental status, encephalopathy, and possible urinary tract infection as well as uncontrolled diabetes mellitus as well as for possible dehydration. Ali Ailyn Barlow DR: STERLING JOB#: [id number] CC:
[2017-01-30] VITALS (7 sets, daily range): BP systolic 132–157; BP diastolic 57–66
--- NOTE | 2017-01-30 01:00 | Consultation ---
DATE OF CONSULTATION: 01/29/2017 INFECTIOUS DISEASE CONSULTATION CONSULTING PHYSICIAN: Torrie Singh M.D. REQUESTING PHYSICIAN: Chacho Barlow M.D. Reason For Consultation: Altered level of consciousness, rule out infectious etiology. History Of Present Illness: The patient is an 81-year-old female with past medical history of coronary artery disease, status post stent; poorly controlled diabetes; and frequent infection, presented to the hospital with altered mental status. The patient looked more confused to her daughter with decreased appetite. She had no nausea or vomiting. No fever or chills. No focal neurological deficit. Blood sugar was found to be very high at home, around 400, and even when she arrived to the emergency room, she was also hyperglycemic with blood glucose around 402. Her temperature was 98.8 degrees and sating 98% on room air. She looked lethargic, but more alert, but tachycardic. So she was admitted to the hospital for further evaluation and management of her altered level of consciousness and uncontrolled diabetes with hyperglycemia and I was consulted by Dr. Barlow to rule out infectious etiology. As of note, the patient is a poor historian, cannot provide any history. History was mainly obtained from the medical record. PAST MEDICAL HISTORY: Significant for diabetes and hypertension. PAST SURGICAL HISTORY: Negative. Medications: She is on Lipitor, isosorbide dinitrate, insulin Levemir, insulin NovoLog, Celexa, Voltaren, doxepin, aspirin, magnesium oxide, ferrous sulfate, Starlix, Temovate, Januvia, Ambien, and menthol. ALLERGIES: No known drug allergy. Social History: The patient denied any drugs, tobacco or alcohol. Lives at home with daughter. FAMILY HISTORY: Negative. PHYSICAL EXAMINATION: General: Elderly female, lying in bed, awake, alert, but confused, not in acute distress, follows commands. Vital Signs: Temperature 97.3 degrees, pulse 87, respirations 20, blood pressure 148/116, and saturation 98% on room air. HEENT: Normocephalic and atraumatic. Pupils are reactive to light. Moist oral mucosa. No exudate. No thrush. NECK: Supple. No lymphadenopathy. CARDIOVASCULAR: Regular rate and rhythm. No murmur. No gallop. LUNGS: Clear bilaterally. No wheezing. No rhonchi. Abdomen: Soft, obese, nontender, and nondistended. Positive bowel sounds. No hepatosplenomegaly. No ascites. EXTREMITIES: No edema or cyanosis. SKIN: No rash or hives. Laboratory And Diagnostic Data: Labs showed white count of 9.4, hemoglobin of 9, hematocrit of 27.9, and platelet count of 300,000. BUN of 9 and creatinine of 0.6. Hemoglobin A1c of 10. Lactic acid of 4.10. Urinalysis was negative for infection with +1 leukocyte esterase, WBC 2 to 4, and few bacteria. Imaging, head CT scan showed no acute intracranial bleed, mass effect, or edema. Moderate atrophy of the brain. Chest x-ray showed interstitial edema. ASSESSMENT/RECOMMENDATION: 1. Altered level of consciousness, rule out infectious etiology. We will send blood culture and West Nile virus serology. We will continue neuro check for now. We will keep off antibiotics since she is afebrile with no leukocytosis. Monitor mental status. 2. Hyperglycemia due to type 1 diabetes mellitus, poorly controlled. Recommend tight glycemic control to keep blood glucose between 80 to 120. 3. Lactic acidosis, unclear etiology. Continue hydration and insulin to keep blood glucose well controlled. Monitor lactic acid level. Thank you for the consultation. ID will continue to follow. Torrie Singh M.D. DR: KWABENA JOB#: [id number] CC:
[2017-01-30] MEDS: Vancomycin 1gm in D5W 275ml IVPB SCH ×2 (03:07→16:58)
[2017-01-30] MEDS: cefTRIAXone 2 GM in D5W 110 ML IVPB SCH ×2 (04:41→15:53)
[2017-01-30] MEDS: NovoLOG Insulin Flexpen SUBQ SCH ×5 (05:38→21:00)
--- NOTE | 2017-01-30 08:15 | Consultation ---
DATE OF CONSULTATION: 01/29/2017 HEMATOLOGY/ONCOLOGY CONSULTATION CONSULTING PHYSICIAN: Stanislaw Rodriguez M.D. REQUESTING PHYSICIAN: Chacho Barlow M.D. REASON FOR CONSULTATION: Evaluation of anemia. IDENTIFICATION DATA: Dear Dr. Chacho Barlow, The patient is a pleasant 81-year-old female with past medical history significant for CAD, status post stent and diabetes mellitus, at this time presents with altered mental status, confused, , and decreased appetite. No nausea, vomiting, fever, or chills. Blood sugar is very high upon admission at 400. ID service was consulted as well as Nephrology to rule out infection. The patient with a history of type 1 diabetes mellitus. Hematology service was consulted and the patient has evidence of anemia. PAST MEDICAL HISTORY: Hyperglycemia and diabetes mellitus. PAST SURGICAL HISTORY: None noted. ALLERGIES: No known drug allergies. Review Of Systems: Constitutional: No fevers, chills, or night sweats. Skin: No rashes, bumps, or itching. HEENT: No headache, hearing or vision changes. Breasts: No lumps, pain, or discharge. Pulmonary: No cough, sputum, or shortness of breath. Gastrointestinal: No nausea, vomiting, or diarrhea. Genitourinary: No dysuria, frequency, or urgency. Musculoskeletal: No joint swelling, muscle pain, or trauma. PHYSICAL EXAMINATION: Vital Signs: Temperature 98 degrees Fahrenheit, pulse of 82, respiratory rate 12, blood pressure 148/116, and O2 saturation 98% on room air. GENERAL: The patient is in no acute distress. PULMONARY: Decreased breath sounds. CARDIOVASCULAR: Regular rate. No S3 or S4. ABDOMEN: Soft, nontender, and nondistended. EXTREMITIES: There is 1+ edema. Laboratory Data: BUN 11 and creatinine 0.6. WBC of 26 and platelet count 300,000. ASSESSMENT AND PLAN: 1. Anemia, secondary to iron deficiency likely, have sent for anemia workup. Hemoglobin and hematocrit has been ordered as well as occult blood. 2. Decreased hemoglobin and hematocrit. Rule out gastrointestinal bleed. 3. Hyperglycemia in a patient with history of type 1 diabetes mellitus. 4. Sepsis with elevated lactic acid. 5. Alkaline phosphatase is elevated. We will continue to closely monitor. 6. Altered mental status. She has been seen by Neurology service encephalopathy. I appreciate the consultation. Stanislaw Rodriguez M.D. DR: ZAID JOB#: [id number] CC:
--- NOTE | 2017-01-30 08:15 | Consultation ---
DATE OF CONSULTATION: 01/29/2017 NEUROLOGICAL CONSULTATION REQUESTING PHYSICIAN: Chacho Barlow M.D. History Of Present Illness: This is an 81-year-old female seen in neurological consultation to evaluate new changes in mental status. The patient is a very poor historian, but was able to indicate that last few days she felt feeling increasingly weak. She complained that she has diabetes for at least 40 years. According to medical records, she presented to this hospital with altered mental status. The family noted that she is becoming increasingly confused. She had a decrease in appetite. Blood sugar tested at home was quite high. Paramedics were called to the scene. Her blood sugar was 400. On admission, vital signs remained stable. She was afebrile. Heart rate of 112. She was described as ill-appearing. There was no evidence of diabetic ketoacidosis. No evidence of obvious bacterial infection. Her laboratory work on admission included CBC study with hemoglobin 9.2 and hematocrit 28.7. Coagulation panel was normal. Chemistry panel with blood sugar of 400, chloride 94, alkaline phosphatase is 111, total protein 6.5, but normal troponin. Lactic acid 5.40. Hemoglobin A1c of 10.0. The patient's EKG normal sinus rhythm. No PVC. Chest x-ray, no acute cardiovascular or pulmonary disease. CAT scan of the brain was obtained, this revealed moderate diffuse atrophy. No evidence of acute intracranial abnormalities. The patient treatment included normal saline. She was on aspirin and Lipitor. She is restarted on her Celexa, Sinequan, , insulin, Amitiza, magnesium oxide, Glucophage, metformin, Starlix, nitroglycerin p.r.n., Januvia, and Ambien as needed. ALLERGIES: None reported. Past Medical History: The patient has a history of insulin-dependent diabetes mellitus, history of coronary artery disease, she is status post angioplasty, morbid obesity, degenerative joint disease, and history of hypertension. FAMILY HISTORY: Noncontributory. Social History: Lives with her family. No alcohol. No drug abuse. Nonsmoker. Review Of Systems: Generalized weakness, but denies headache or dizziness. Denies chest pain or palpitations. Denies urine or bowel incontinence. PHYSICAL EXAMINATION: General: A well-developed, morbidly obese, elderly female, lying comfortably in bed. Vital Signs: Now Stable. Blood pressure 151/62 and temperature 98.2. HEENT: Head normocephalic. There is no evidence of trauma. Eyes, ears, and throat are clear. NECK: Supple. No meningeal signs. Musculoskeletal: Arthritic changes both knees. Peripheral pulses 1+ symmetric. Mental Status: The patient is alert, oriented to her name and age, but not address. She knew names of her family and her attending physician. She was able to follow simple commands. Cranial Nerve II: Pupils both responding to light and accommodation. Extraocular movement intact. No nystagmus. CRANIAL NERVE V: Normal corneal responses. CRANIAL NERVE VII: No facial asymmetry. CRANIAL NERVE VIII: Slight decreasing hearing. CRANIAL NERVES IX THROUGH XII: Within normal limits. Motor: Able to lift arms and legs against gravity. No involuntary movement. No muscle wasting. Deep tendon reflexes depressed bilaterally. Plantar responses is mute. Sensory: Decreased response to pin stimulation both feet. Decreased proprioception both feet. Gait not tested, but reported as slow, somewhat wobbly. IMPRESSION: 1. Confusion and obtundation due to significant hyperglycemia, metabolic derangement, rule out underlying infection. 2. Polypharmacy. 3. Hypertension. 4. Insulin-dependent diabetes mellitus. 5. Cognitive impairment. RECOMMENDATION: 1. The patient to continue with adjustment of current treatment. Hold sedatives (Sinequan). 2. Maintain on aspirin and statins. 3. Get PT/ OT. 4. Start mobility protocol. Thank you for allowing me to see this interesting patient in neurological consultation. Kishore Kramer M.D. DR: MELISA JOB#: [id number] CC:
[2017-01-30] MEDS: Clobetasol Cream 0.05% 15gm TOPIC SCH ×2 (09:00→17:33)
[2017-01-30] MEDS: Doxepin 25mg Cap ORAL SCH (09:45)
[2017-01-30] MEDS: Aspirin EC 81mg tab ORAL SCH (09:46)
[2017-01-30] MEDS: Magnesium Oxide 400mg tab ORAL SCH ×4 (09:46→21:46)
[2017-01-30] MEDS: Levemir Flexpen SUBQ SCH (09:47)
[2017-01-30] MEDS: Citalopram 20mg Tab ORAL SCH (11:05)
--- NOTE | 2017-01-30 16:34 | Infectious Diseases Prog Note ---
Assessment/Plan Problems: (1) Altered level of consciousness Assessment & Plan: rule out infectious etiology , await blood culture and west nile virus serology , continue neuro check, continue vancomycin and ceftriaxon empirically (2) Hyperglycemia due to type 1 diabetes mellitus Assessment & Plan: poorly controlled, recommend tight glycemic control to keep blood glucose between 80-120 (3) Lactic acid acidosis Assessment & Plan: unclear etiology , continue hydration and insulin to keep blood glucose well controlled, monitor lactic acid level Subjective Constitutional: Reports: no symptoms HEENT: Reports: no symptoms Respiratory: Reports: no symptoms Breasts: Reports: no symptoms Cardiovascular: Reports: no symptoms Gastrointestinal/Abdominal: Reports: no symptoms Genitourinary: Reports: no symptoms Neurologic: Reports: confusion Psychiatric: Reports: no symptoms Skin: Reports: no symptoms Endocrine: Reports: no symptoms Hematologic: Reports: no symptoms Musculoskeletal: Reports: no symptoms Allergies: Coded Allergies: No Known Allergies (Unverified , 12/23/12) Objective Vital Signs Last 24 Hour Vital Signs Date Time Temp Pulse Resp B/P (MAP) Pulse Ox O2 Delivery O2 Flow Rate FiO2 01/30/17 16:00 97.9 77 20 152/61 99 Room Air 01/30/17 13:24 98.6 01/30/17 12:24 140/66 01/30/17 11:58 98.6 88 21 140/66 95 Room Air 01/30/17 08:15 96.7 75 20 144/62 95 Room Air 01/30/17 05:37 147/65 01/30/17 04:16 97.8 81 19 147/65 98 Room Air 01/30/17 00:00 98.6 81 20 132/65 98 Room Air 01/29/17 23:49 130/68 01/29/17 20:00 98.7 80 20 128/54 98 Room Air 01/29/17 17:23 151/62 Height (Feet): 5 Height (Inches): 5.00 Weight (Pounds): 204 General Appearance: WD/WN, no acute distress HEENT: normocephalic, atraumatic, anicteric, mucous membranes moist Respiratory/Chest: chest wall non-tender, lungs clear, normal breath sounds, no respiratory distress, no accessory muscle use Cardiovascular: normal peripheral pulses, normal rate, regular rhythm, no gallop/murmur, no JVD Abdomen: normal bowel sounds, soft, non tender, no organomegaly, non distended , no mass, no scars Extremities: no cyanosis, no clubbing Skin: no rash, no lesions Neurologic/Psychiatric: alert, responsive Musculoskeletal: normal muscle bulk, no effusion Microbiology Date/Time Source Procedure Growth Status 01/28/17 21:40 Blood Blood Culture - Preliminary NO GROWTH AFTER 24 HOURS Resulted 01/28/17 21:25 Blood Blood Culture - Preliminary NO GROWTH AFTER 24 HOURS Resulted Laboratory Tests Test 01/30/17 10:35 Lactic Acid Level 1.30 mmol/L (0.66-2.22) Current Medications Medications (Trade) Dose Ordered Sig/Lorena Route PRN Reason Start Time Stop Time Status Last Admin Dose Admin Acetaminophen (Tylenol) 650 mg Q4H PRN ORAL Mild Pain/Temp > 100.5 01/29/17 00:30 02/28/17 00:29 Aspirin (Ecotrin) 81 mg DAILY ORAL 01/29/17 09:00 02/28/17 08:59 01/30/17 09:46 Atorvastatin Calcium (Lipitor) 40 mg BEDTIME ORAL 01/29/17 21:00 02/28/17 20:59 01/29/17 20:30 Ceftriaxone Sodium 2 gm/ Dextrose 110 ml @ 220 mls/hr Q12HR@0430,1630 IVPB 01/29/17 16:30 02/05/17 16:29 01/30/17 15:53 Citalopram Hydrobromide (celeXA) 40 mg DAILY ORAL 01/29/17 09:00 02/28/17 08:59 01/30/17 11:05 Clobetasol Propionate (Temovate) 1 applic TWICE A DAY TOPIC 01/29/17 09:00 02/28/17 08:59 Dextrose (Dextrose 50%) STAT PRN IV Hypoglycemia 01/29/17 08:00 02/28/17 07:59 Diclofenac Sodium (Voltaren) 50 mg THREE TIMES A DAY ORAL 01/29/17 09:00 02/28/17 08:59 01/30/17 12:25 Doxepin HCl (SINEquan) 25 mg DAILY ORAL 01/29/17 09:00 02/28/17 08:59 01/30/17 09:45 Ferrous Sulfate (Feosol) 160 mg THREE TIMES A DAY ORAL 01/29/17 09:00 02/28/17 08:59 01/30/17 12:24 Insulin Aspart (NovoLOG) BEFORE MEALS AND HS SUBQ 01/30/17 17:00 03/01/17 16:59 Insulin Aspart (NovoLOG) 8 units NOVOTIAC SUBQ 01/29/17 11:50 02/28/17 11:49 01/30/17 12:26 Insulin Detemir (Levemir) 24 units DAILY SUBQ 01/29/17 11:00 02/28/17 10:59 01/30/17 09:47 Isosorbide Dinitrate (Isordil) 10 mg Q6HR ORAL 01/29/17 12:00 02/28/17 11:59 01/30/17 12:24 Magnesium Oxide (Mag-Ox 400mg) 400 mg FOUR TIMES A DAY ORAL 01/29/17 09:00 02/28/17 08:59 01/30/17 12:24 Menthol (Calmoseptine) 1 applic BID PRN TOPIC Itching 01/29/17 01:00 02/28/17 00:59 Nateglinide (Starlix) 120 mg BID ORAL 01/29/17 09:00 02/28/17 08:59 01/30/17 09:46 Nitroglycerin (Ntg) 0.4 mg Q5M PRN SL Prn Chest Pain 01/29/17 01:00 02/28/17 00:59 Polyethylene Glycol (Miralax) 17 gm DAILY PRN ORAL Constipation 01/29/17 01:00 02/28/17 00:59 Sitagliptin Phosphate (Januvia) 100 mg ACBREAKFAST ORAL 01/29/17 06:30 02/28/17 06:29 01/30/17 05:37 Vancomycin HCl (Vanco rx to dose) 1 ea DAILY PRN MISC Per rx protocol 01/29/17 15:30 02/28/17 15:29 Vancomycin HCl 1 gm/Dextrose 275 ml @ 183.708 mls/hr Q12HR@0400,1600 IVPB 01/30/17 04:00 02/04/17 03:59 01/30/17 03:07 Zolpidem Tartrate (Ambien) 5 mg HSPRN PRN ORAL Insomnia 01/29/17 01:00 02/05/17 00:59 01/29/17 20:32 Torrie Singh M.D. Jan 30, 2017 16:34
--- NOTE | 2017-01-30 17:52 | General Progress Note ---
Assessment/Plan Assessment/Plan ASSESSMENT AND PLAN: 1. Anemia, secondary to iron deficiency likely, have sent for anemia workup. Currently pending 2. Decreased hemoglobin and hematocrit. Rule out gastrointestinal bleed. 3. Hyperglycemia in a patient with history of type 1 diabetes mellitus. 4. Sepsis with elevated lactic acid. 5. Alkaline phosphatase is elevated. We will continue to closely monitor. 6. Altered mental status. She has been seen by Neurology service Subjective ROS Limited/Unobtainable: Yes Allergies: Coded Allergies: No Known Allergies (Unverified , 12/23/12) Subjective NAD Objective Last 24 Hour Vital Signs Date Time Temp Pulse Resp B/P (MAP) Pulse Ox O2 Delivery O2 Flow Rate FiO2 01/30/17 17:31 152/61 01/30/17 16:00 97.9 77 20 152/61 99 Room Air 01/30/17 13:24 98.6 01/30/17 12:24 140/66 01/30/17 11:58 98.6 88 21 140/66 95 Room Air 01/30/17 08:15 96.7 75 20 144/62 95 Room Air 01/30/17 05:37 147/65 01/30/17 04:16 97.8 81 19 147/65 98 Room Air 01/30/17 00:00 98.6 81 20 132/65 98 Room Air 01/29/17 23:49 130/68 01/29/17 20:00 98.7 80 20 128/54 98 Room Air Intake and Output 01/30/17 01/31/17 19:00 07:00 Intake Total 480 ml Balance 480 ml Intake Oral 480 ml Laboratory Tests 01/30/17 10:35: Lactic Acid Level 1.30 Height (Feet): 5 Height (Inches): 5.00 Weight (Pounds): 204 General Appearance: no apparent distress, lethargic, confused EENT: normal ENT inspection Neck: normal inspection Cardiovascular: regular rhythm Extremities: non-tender Edema: mild edema Neurologic: alert Skin: normal pigmentation Stanislaw Rodriguez Jan 30, 2017 17:52
--- NOTE | 2017-01-30 18:20 | General Progress Note ---
Assessment/Plan Problem List: (1) Lactic acid acidosis ICD Codes: E87.2 - Acidosis SNOMED: 59323042 (2) Altered level of consciousness ICD Codes: R40.4 - Transient alteration of awareness SNOMED: 1637426 (3) Hyperglycemia due to type 1 diabetes mellitus ICD Codes: E10.65 - Type 1 diabetes mellitus with hyperglycemia SNOMED: 625941527980759, 42529320 (4) Encephalopathy acute ICD Codes: G93.40 - Encephalopathy, unspecified SNOMED: 4985872 Status: progressing Assessment/Plan dm bg is improving confusion improving obs vitals stable Subjective ROS Limited/Unobtainable: Yes Constitutional: Reports: no symptoms Allergies: Coded Allergies: No Known Allergies (Unverified , 12/23/12) Objective Last 24 Hour Vital Signs Date Time Temp Pulse Resp B/P (MAP) Pulse Ox O2 Delivery O2 Flow Rate FiO2 01/30/17 17:31 152/61 01/30/17 16:00 97.9 77 20 152/61 99 Room Air 01/30/17 13:24 98.6 01/30/17 12:24 140/66 01/30/17 11:58 98.6 88 21 140/66 95 Room Air 01/30/17 08:15 96.7 75 20 144/62 95 Room Air 01/30/17 05:37 147/65 01/30/17 04:16 97.8 81 19 147/65 98 Room Air 01/30/17 00:00 98.6 81 20 132/65 98 Room Air 01/29/17 23:49 130/68 01/29/17 20:00 98.7 80 20 128/54 98 Room Air Intake and Output 01/30/17 01/31/17 19:00 07:00 Intake Total 480 ml Balance 480 ml Intake Oral 480 ml Laboratory Tests 01/30/17 10:35: Lactic Acid Level 1.30 Height (Feet): 5 Height (Inches): 5.00 Weight (Pounds): 204 General Appearance: confused Cardiovascular: regular rhythm Respiratory/Chest: lungs clear Chacho Barlow MD Jan 30, 2017 18:19
[2017-01-30 19:00] LABS: HEMOLYSIS 5; IRON 18 ug/dL (37-145); TOTAL IRON BINDING CAPACITY 374 ug/dL (250-400)
[2017-01-30 19:09] LABS: FERRITIN 10 ng/mL (13-150)
[2017-01-30] MEDS: Zolpidem 5mg tab ORAL PRN (21:57)
[2017-01-31 03:56] VITALS: BP 147/78
[2017-01-31] MEDS: cefTRIAXone 2 GM in D5W 110 ML IVPB SCH ×2 (04:41→16:15)
[2017-01-31] MEDS: Vancomycin 1gm in D5W 275ml IVPB SCH (04:50)
[2017-01-31] MEDS: NovoLOG Insulin Flexpen SUBQ SCH ×6 (06:15→17:12)
[2017-01-31 08:00] VITALS: BP 150/68
[2017-01-31] MEDS: Clobetasol Cream 0.05% 15gm TOPIC SCH (09:00)
[2017-01-31] MEDS: Aspirin EC 81mg tab ORAL SCH (09:42)
[2017-01-31] MEDS: Magnesium Oxide 400mg tab ORAL SCH ×2 (09:43→12:19)
[2017-01-31] MEDS: Citalopram 20mg Tab ORAL SCH (09:43)
[2017-01-31] MEDS: Doxepin 25mg Cap ORAL SCH (09:43)
[2017-01-31] MEDS: Levemir Flexpen SUBQ SCH (09:44)
[2017-01-31 12:00] VITALS: BP 148/71
--- NOTE | 2017-01-31 13:27 | General Progress Note ---
Assessment/Plan Problem List: (1) Lactic acid acidosis ICD Codes: E87.2 - Acidosis SNOMED: 86720523 (2) Altered level of consciousness ICD Codes: R40.4 - Transient alteration of awareness SNOMED: 8514850 (3) Hyperglycemia due to type 1 diabetes mellitus ICD Codes: E10.65 - Type 1 diabetes mellitus with hyperglycemia SNOMED: 837343347205450, 59194043 (4) Encephalopathy acute ICD Codes: G93.40 - Encephalopathy, unspecified SNOMED: 7216605 Status: progressing Assessment/Plan dm bg is improved confusion improving dc home w hh for pt per daughter request Subjective ROS Limited/Unobtainable: Yes Allergies: Coded Allergies: No Known Allergies (Unverified , 12/23/12) Objective Last 24 Hour Vital Signs Date Time Temp Pulse Resp B/P (MAP) Pulse Ox O2 Delivery O2 Flow Rate FiO2 01/31/17 13:19 98.0 01/31/17 12:19 148/71 01/31/17 12:00 98.0 72 18 148/71 97 Room Air 01/31/17 08:00 98.0 76 20 150/68 97 Room Air 01/31/17 06:13 147/78 01/31/17 03:56 96.8 77 20 147/78 100 Room Air 01/31/17 00:38 157/62 01/30/17 23:53 98.2 76 20 157/62 97 Room Air 01/30/17 20:03 97.7 73 20 137/57 100 Room Air 01/30/17 17:31 152/61 01/30/17 16:00 97.9 77 20 152/61 99 Room Air Height (Feet): 5 Height (Inches): 5.00 Weight (Pounds): 204 Cardiovascular: normal rate Respiratory/Chest: lungs clear Abdomen: soft Chacho Barlow MD Jan 31, 2017 13:27
[2017-01-31] MEDS ORDERED: Flu Vaccine Quadrivalent 0.5ml IM ONE (15:00)
[2017-01-31] MEDS ORDERED: Tubing IV Secondary IV ONE (15:09)
[2017-01-31 16:00] VITALS: BP 135/38
--- NOTE | 2017-01-31 16:27 | Infectious Diseases Prog Note ---
Assessment/Plan Problems: (1) Altered level of consciousness Assessment & Plan: no evidence of infectious etiology , blood culture is negative , [place] virus serology is pending , continue neuro check, will stop vancomycin and ceftriaxon empirically (2) Hyperglycemia due to type 1 diabetes mellitus Assessment & Plan: poorly controlled, recommend tight glycemic control to keep blood glucose between 80-120 (3) Lactic acid acidosis Assessment & Plan: unclear etiology , continue hydration and insulin to keep blood glucose well controlled, monitor lactic acid level Subjective Constitutional: Reports: no symptoms HEENT: Reports: no symptoms Respiratory: Reports: no symptoms Breasts: Reports: no symptoms Cardiovascular: Reports: no symptoms Gastrointestinal/Abdominal: Reports: no symptoms Genitourinary: Reports: no symptoms Neurologic: Reports: no symptoms Psychiatric: Reports: no symptoms Skin: Reports: no symptoms Endocrine: Reports: no symptoms Hematologic: Reports: no symptoms Musculoskeletal: Reports: no symptoms Allergies: Coded Allergies: No Known Allergies (Unverified , 12/23/12) Objective Vital Signs Last 24 Hour Vital Signs Date Time Temp Pulse Resp B/P (MAP) Pulse Ox O2 Delivery O2 Flow Rate FiO2 01/31/17 13:19 98.0 01/31/17 12:19 148/71 01/31/17 12:00 98.0 72 18 148/71 97 Room Air 01/31/17 08:00 98.0 76 20 150/68 97 Room Air 01/31/17 06:13 147/78 01/31/17 03:56 96.8 77 20 147/78 100 Room Air 01/31/17 00:38 157/62 01/30/17 23:53 98.2 76 20 157/62 97 Room Air 01/30/17 20:03 97.7 73 20 137/57 100 Room Air 01/30/17 17:31 152/61 Height (Feet): 5 Height (Inches): 5.00 Weight (Pounds): 204 General Appearance: WD/WN, no acute distress HEENT: normocephalic, atraumatic, anicteric, mucous membranes moist, PERRL, EOMI, pharynx normal, supple, no JVD Respiratory/Chest: chest wall non-tender, lungs clear, normal breath sounds, no respiratory distress, no accessory muscle use Cardiovascular: normal peripheral pulses, normal rate, regular rhythm, no gallop/murmur, no JVD Abdomen: normal bowel sounds, soft, non tender, no organomegaly, non distended , no mass, no scars Genitourinary: normal external genitalia Extremities: no cyanosis, no clubbing Skin: no rash, no lesions, no ulcers Neurologic/Psychiatric: alert, oriented x 3, responsive Lymphatic: no neck adenopathy, no groin adenopathy Microbiology Date/Time Source Procedure Growth Status 01/28/17 21:40 Blood Blood Culture - Preliminary NO GROWTH AFTER 48 HOURS Resulted 01/28/17 21:25 Blood Blood Culture - Preliminary NO GROWTH AFTER 48 HOURS Resulted Laboratory Tests Test 01/31/17 15:00 Vancomycin Level Trough 14.4 ug/mL (5.0-12.0) H Current Medications Medications (Trade) Dose Ordered Sig/Lorena Route PRN Reason Start Time Stop Time Status Last Admin Dose Admin Acetaminophen (Tylenol) 650 mg Q4H PRN ORAL Mild Pain/Temp > 100.5 01/29/17 00:30 02/28/17 00:29 Aspirin (Ecotrin) 81 mg DAILY ORAL 01/29/17 09:00 02/28/17 08:59 01/31/17 09:42 Atorvastatin Calcium (Lipitor) 40 mg BEDTIME ORAL 01/29/17 21:00 02/28/17 20:59 01/30/17 21:45 Ceftriaxone Sodium 2 gm/ Dextrose 110 ml @ 220 mls/hr Q12HR@0430,1630 IVPB 01/29/17 16:30 02/05/17 16:29 01/31/17 16:15 Citalopram Hydrobromide (celeXA) 40 mg DAILY ORAL 01/29/17 09:00 02/28/17 08:59 01/31/17 09:43 Clobetasol Propionate (Temovate) 1 applic TWICE A DAY TOPIC 01/29/17 09:00 02/28/17 08:59 Dextrose (Dextrose 50%) STAT PRN IV Hypoglycemia 01/29/17 08:00 02/28/17 07:59 Diclofenac Sodium (Voltaren) 50 mg THREE TIMES A DAY ORAL 01/29/17 09:00 02/28/17 08:59 01/31/17 12:20 Doxepin HCl (SINEquan) 25 mg DAILY ORAL 01/29/17 09:00 02/28/17 08:59 01/31/17 09:43 Ferrous Sulfate (Feosol) 160 mg THREE TIMES A DAY ORAL 01/29/17 09:00 02/28/17 08:59 01/31/17 12:19 Insulin Aspart (NovoLOG) BEFORE MEALS AND HS SUBQ 01/30/17 17:00 03/01/17 16:59 01/31/17 12:21 Insulin Aspart (NovoLOG) 8 units NOVOTIAC SUBQ 01/29/17 11:50 02/28/17 11:49 01/31/17 12:21 Insulin Detemir (Levemir) 24 units DAILY SUBQ 01/29/17 11:00 02/28/17 10:59 01/31/17 09:44 Isosorbide Dinitrate (Isordil) 10 mg Q6HR ORAL 01/29/17 12:00 02/28/17 11:59 01/31/17 12:19 Magnesium Oxide (Mag-Ox 400mg) 400 mg FOUR TIMES A DAY ORAL 01/29/17 09:00 02/28/17 08:59 01/31/17 12:19 Menthol (Calmoseptine) 1 applic BID PRN TOPIC Itching 01/29/17 01:00 02/28/17 00:59 Nateglinide (Starlix) 120 mg BID ORAL 01/29/17 09:00 02/28/17 08:59 01/31/17 09:43 Nitroglycerin (Ntg) 0.4 mg Q5M PRN SL Prn Chest Pain 01/29/17 01:00 02/28/17 00:59 Polyethylene Glycol (Miralax) 17 gm DAILY PRN ORAL Constipation 01/29/17 01:00 02/28/17 00:59 Sitagliptin Phosphate (Januvia) 100 mg ACBREAKFAST ORAL 01/29/17 06:30 02/28/17 06:29 01/31/17 06:13 Vancomycin HCl (Vanco rx to dose) 1 ea DAILY PRN MISC Per rx protocol 01/29/17 15:30 02/28/17 15:29 Vancomycin HCl 1 gm/Dextrose 275 ml @ 183.708 mls/hr Q12HR@0400,1600 IVPB 01/30/17 04:00 02/04/17 03:59 01/31/17 04:50 Zolpidem Tartrate (Ambien) 5 mg HSPRN PRN ORAL Insomnia 01/29/17 01:00 02/05/17 00:59 01/30/17 21:57 Torrie Singh M.D. Jan 31, 2017 16:27
--- NOTE | 2017-01-31 18:41 | General Progress Note ---
Assessment/Plan Problem List: (1) Lactic acid acidosis ICD Codes: E87.2 - Acidosis SNOMED: 07207254 (2) Altered level of consciousness ICD Codes: R40.4 - Transient alteration of awareness SNOMED: 1027528 (3) Hyperglycemia due to type 1 diabetes mellitus ICD Codes: E10.65 - Type 1 diabetes mellitus with hyperglycemia SNOMED: 459524046691484, 92019819 (4) Encephalopathy acute ICD Codes: G93.40 - Encephalopathy, unspecified SNOMED: 3760200 Assessment/Plan continue current insulin regimen clear for DC home from endocrine stand point discussed with Dr Bruce Teran (patient's PCP) Subjective Allergies: Coded Allergies: No Known Allergies (Unverified , 12/23/12) All Systems: reviewed and negative except above Subjective events noted Objective Last 24 Hour Vital Signs Date Time Temp Pulse Resp B/P (MAP) Pulse Ox O2 Delivery O2 Flow Rate FiO2 01/31/17 16:00 97.3 74 15 135/38 98 01/31/17 13:19 98.0 01/31/17 12:19 148/71 01/31/17 12:00 98.0 72 18 148/71 97 Room Air 01/31/17 08:00 98.0 76 20 150/68 97 Room Air 01/31/17 06:13 147/78 01/31/17 03:56 96.8 77 20 147/78 100 Room Air 01/31/17 00:38 157/62 01/30/17 23:53 98.2 76 20 157/62 97 Room Air 01/30/17 20:03 97.7 73 20 137/57 100 Room Air Intake and Output 01/31/17 02/01/17 19:00 07:00 Intake Total 800 ml Balance 800 ml Intake Oral 800 ml # Voids 2 Laboratory Tests 01/31/17 15:00: Vancomycin Level Trough 14.4H Height (Feet): 5 Height (Inches): 5.00 Weight (Pounds): 204 General Appearance: no apparent distress Neck: normal alignment Cardiovascular: normal rate Respiratory/Chest: lungs clear Abdomen: normal bowel sounds Objective Current Medications Medications (Trade) Dose Ordered Sig/Lorena Route PRN Reason Start Time Stop Time Status Last Admin Dose Admin Acetaminophen (Tylenol) 650 mg Q4H PRN ORAL Mild Pain/Temp > 100.5 01/29/17 00:30 02/28/17 00:29 Aspirin (Ecotrin) 81 mg DAILY ORAL 01/29/17 09:00 02/28/17 08:59 01/31/17 09:42 Atorvastatin Calcium (Lipitor) 40 mg BEDTIME ORAL 01/29/17 21:00 02/28/17 20:59 01/30/17 21:45 Citalopram Hydrobromide (celeXA) 40 mg DAILY ORAL 01/29/17 09:00 02/28/17 08:59 01/31/17 09:43 Clobetasol Propionate (Temovate) 1 applic TWICE A DAY TOPIC 01/29/17 09:00 02/28/17 08:59 Dextrose (Dextrose 50%) STAT PRN IV Hypoglycemia 01/29/17 08:00 02/28/17 07:59 Diclofenac Sodium (Voltaren) 50 mg THREE TIMES A DAY ORAL 01/29/17 09:00 02/28/17 08:59 01/31/17 12:20 Doxepin HCl (SINEquan) 25 mg DAILY ORAL 01/29/17 09:00 02/28/17 08:59 01/31/17 09:43 Ferrous Sulfate (Feosol) 160 mg THREE TIMES A DAY ORAL 01/29/17 09:00 02/28/17 08:59 01/31/17 12:19 Insulin Aspart (NovoLOG) BEFORE MEALS AND HS SUBQ 01/30/17 17:00 03/01/17 16:59 01/31/17 17:10 Insulin Aspart (NovoLOG) 8 units NOVOTIAC SUBQ 01/29/17 11:50 02/28/17 11:49 01/31/17 17:12 Insulin Detemir (Levemir) 24 units DAILY SUBQ 01/29/17 11:00 02/28/17 10:59 01/31/17 09:44 Isosorbide Dinitrate (Isordil) 10 mg Q6HR ORAL 01/29/17 12:00 02/28/17 11:59 01/31/17 12:19 Magnesium Oxide (Mag-Ox 400mg) 400 mg FOUR TIMES A DAY ORAL 01/29/17 09:00 02/28/17 08:59 01/31/17 12:19 Menthol (Calmoseptine) 1 applic BID PRN TOPIC Itching 01/29/17 01:00 02/28/17 00:59 Nateglinide (Starlix) 120 mg BID ORAL 01/29/17 09:00 02/28/17 08:59 01/31/17 09:43 Nitroglycerin (Ntg) 0.4 mg Q5M PRN SL Prn Chest Pain 01/29/17 01:00 02/28/17 00:59 Polyethylene Glycol (Miralax) 17 gm DAILY PRN ORAL Constipation 01/29/17 01:00 02/28/17 00:59 Sitagliptin Phosphate (Januvia) 100 mg ACBREAKFAST ORAL 01/29/17 06:30 02/28/17 06:29 01/31/17 06:13 Zolpidem Tartrate (Ambien) 5 mg HSPRN PRN ORAL Insomnia 01/29/17 01:00 02/05/17 00:59 01/30/17 21:57 Item Value Date Time Bedside Blood Glucose 180 mg/dl H 01/31/17 1712 Bedside Blood Glucose 247 mg/dl H 01/31/17 1221 Bedside Blood Glucose 113 mg/dl 01/31/17 0944 Bedside Blood Glucose 113 mg/dl 01/31/17 0630 Bedside Blood Glucose 185 mg/dl H 01/30/17 2100 AUSTYN GARCIA Jan 31, 2017 18:41
--- NOTE | 2017-01-31 22:17 | General Progress Note ---
Assessment/Plan Assessment/Plan ASSESSMENT AND PLAN: 1. Anemia 2/2 chronic disease, work up reviewed. --> No evidence of iron deficiency. --> hgb goal 8-10 2. Hyperglycemia in a patient with history of type 1 diabetes mellitus. 3. Alkaline phosphatase is elevated. We will continue to closely monitor. 4. Altered mental status. She has been seen by Neurology service Subjective Constitutional: Reports: no symptoms HEENT: Reports: no symptoms Cardiovascular: Reports: no symptoms Respiratory: Reports: no symptoms Gastrointestinal/Abdominal: Reports: no symptoms Genitourinary: Reports: no symptoms Neurologic/Psychiatric: Reports: no symptoms Endocrine: Reports: no symptoms Hematologic/Lymphatic: Reports: no symptoms Allergies: Coded Allergies: No Known Allergies (Unverified , 12/23/12) Subjective afebrile, no bleeding, no complaints Objective Last 24 Hour Vital Signs Date Time Temp Pulse Resp B/P (MAP) Pulse Ox O2 Delivery O2 Flow Rate FiO2 01/31/17 16:00 97.3 74 15 135/38 98 01/31/17 13:19 98.0 01/31/17 12:19 148/71 01/31/17 12:00 98.0 72 18 148/71 97 Room Air 01/31/17 08:00 98.0 76 20 150/68 97 Room Air 01/31/17 06:13 147/78 01/31/17 03:56 96.8 77 20 147/78 100 Room Air 01/31/17 00:38 157/62 01/30/17 23:53 98.2 76 20 157/62 97 Room Air Intake and Output 01/31/17 02/01/17 19:00 07:00 Intake Total 800 ml Balance 800 ml Intake Oral 800 ml # Voids 2 Laboratory Tests 01/31/17 15:00: Vancomycin Level Trough 14.4H Height (Feet): 5 Height (Inches): 5.00 Weight (Pounds): 204 General Appearance: no apparent distress EENT: normal ENT inspection Neck: normal inspection Cardiovascular: regularly irregular Abdomen: no organomegaly Pelvis: no masses Stanislaw Rodriguez Jan 31, 2017 22:17
--- NOTE | 2017-02-03 15:52 | Discharge Summary ---
Discharge Summary Hospital Course Date of Admission Jan 28, 2017 at 23:34 Date of Discharge Jan 31, 2017 at 17:45 Admitting Diagnosis encephalopathy, lactic acidosis HPI Moses Ashraf is a 81 year old female who was admitted on Jan 28, 2017 at 23:34 for Encephalopathy,Lactic Acidosis Hospital Course dc summary #[id number] Discharge Medications Continued Medications: Amitriptyline Hcl* (Amitriptyline Hcl*) 25 Mg Tablet 25 MG ORAL BEDTIME, TAB Aspirin* (Ecotrin*) 325 Mg Tablet.dr 81 MG ORAL DAILY, TAB Atenolol* (Tenormin*) 50 Mg Tablet 50 MG ORAL DAILY Atorvastatin Calcium* (Atorvastatin Calcium*) 40 Mg Tablet 40 MG ORAL BEDTIME, TAB Captopril (Captopril) 25 Mg Tablet 25 MG PO DAILY Citalopram Hydrobromide* (Citalopram Hbr*) 40 Mg Tablet 40 MG ORAL DAILY, TAB Clobetasol Propionate (Temovate) 15 Gm Oint...g. 15 GM TP, GM Diclofenac Sod* (Voltaren*) 50 Mg Tablet.dr 50 MG ORAL THREE TIMES A DAY, TAB Doxepin Hcl (Doxepin Hcl*) 25 Mg Capsule 25 MG ORAL BEDTIME, #30 CAP 0 Refills Ferrous Sulfate, Dried (Iron) 160 Mg Tablet.er 160 MG PO, TAB Fluocinolone Acetonide (Fluocinolone Acetonide) 15 Gm Cream..g. 15 GM TP, GM Folic Acid* (Folic Acid*) 1 Mg Tablet 1 MG ORAL DAILY, TAB Furosemide* (Lasix*) 20 Mg Tablet 20 MG ORAL DAILY, TAB Insulin Degludec (Tresiba Flextouch U-100) 100 Unit/1 Ml Insuln.pen 100 UNIT SQ, EA Isosorbide Mononitrate (Isosorbide Mononitrate) 10 Mg Tablet 10 MG PO FOUR TIMES A DAY, TAB Levothyroxine Sodium* (Levoxyl*) 150 Mcg Tablet 137 MCG ORAL DAILY, TAB Take in the morning on an empty stomach, at least 30 minutes before food. Loratadine (Claritin) 10 Mg Capsule 10 MG ORAL DAILY, CAP Lubiprostone (Amitiza*) 24 Mcg Capsule 8 MCG ORAL EVERY 12 HOURS, CAP Magnesium Oxide (Magnesium) 400 Mg Tablet 400 MG PO, TAB Menthol/Zinc Oxide (Calmoseptine Ointment) 3.5 Gm Oint.pack 3.5 GM TP, PACKET Metformin Hcl* (Metformin Hcl*) 1,000 Mg Tablet 1000 MG ORAL DAILY, TAB Mineral Oil/Carrageenan (Kondremul Microemulsion) 2.5 Ml/5 Ml Emulsion 2.5 ML PO Nateglinide* (Starlix*) 60 Mg Tablet 120 MG ORAL BID, TAB Polyethylene Glycol 3350* (Miralax*) 17 Gm Powd.pack 17 GM ORAL DAILY, PACKET Sitagliptin* (Januvia*) 25 Mg Tablet 100 MG ORAL DAILY, TAB Telmisartan (Micardis) 80 Mg Tablet 80 MG ORAL DAILY, TAB Zolpidem Tartrate* (Ambien*) 5 Mg Tablet 5 MG ORAL BEDTIME PRN for Insomnia, TAB Discharge Condition Upon Discharge: stable Discharge Disposition Patient was discharged to Home with Home Health(06) Discharge Diagnoses: Discharge Instructions Discharge Instructions Special Instructions I have been assigned to complete a D/C Summary on this account. I was not involved in the patient management Adrianna Keys NP ([place]te[place]) Feb 03, 2017 15:52
--- NOTE | 2017-02-04 16:15 | Discharge Summary 2 SIG ---
DATE OF ADMISSION: 01/28/2017 DATE OF DISCHARGE: 01/31/2017 CONSULTANTS: 1. Kishore Kramer M.D., neurologist. 2. Torrie Singh M.D., Infectious Disease specialist. 3. Servando Arguello M.D., medical library assistant. 4. Stanislaw Rodriguez M.D., costume shop manager. SHORT HOSPITAL STAY: 81-year-old female with history of hypertension, diabetes, and coronary artery disease with stented artery, was brought by her daughter for evaluation. The daughter reported change in mental status of her mother with onset earlier the same day. Patient exhibited decreased appetite. No nausea. No vomiting. No fever. No chills. No focal deficit. Blood sugar was over 400 per paramedics at home. The patient was slightly tachycardic -112. Blood pressure-116/86 and pulse oximetry was 96% on the room air. EKG revealed normal sinus rhythm. No acute changes. Troponin was negative. Chest x-ray revealed no evidence of acute cardiopulmonary disease. CT of the head revealed no evidence of acute pathology, but demonstrated general atrophy of the brain. Lactic acid - 5.4 and repeated - 4.1. Blood sugar -400 in the emergency room. Laboratory workup revealed no evidence of diabetic ketoacidosis. The patient was started on short and long acting insulin and sliding scale of insulin as needed. Multiple Slide Operator followed. Hemoglobin A1c- 10, clearly not at goal. The patient will need further optimization of anti-glycemic regimen. The patient was on NovoLog 8 units t.i.d. with sliding scale of NovoLog and Levemir 24 units daily. Multiple Slide Operator stressed importance of not to use metformin in the context of the lactic acidosis. Infectious Disease doctor followed. Blood culture were negative. No evidence of infectious etiology. Empiric antibiotics, which started initially upon admission, were stopped. Counts were closely monitored. Outpatient Therapist closely followed. Anemia workup was consistent with anemia of chronic disease. No evidence of iron deficiency. Hemoglobin at baseline. No need for transfusion. Neurologist seen and evaluated the patient and concluded that the patient had confusion and obtundation due to significant hyperglycemia and metabolic derangement. He recommended to continue adjustment of current medication and hold sedative. Statin was continued. Blood pressure was clsoely monitored and managed. The patient was working with Physical and Occupational Therapists. The patient was stable for discharge. FINAL DIAGNOSES: 1. Acute toxic metabolic encephalopathy. 2. Hyperglycemia secondary to diabetes, poorly controlled 3. Lactic acidosis, resolved. 4. Anemia of chronic disease. 5. Hypertension. 6. Polypharmacy. DISCHARGE MEDICATIONS: See medication reconciliation list. DISCHARGE INSTRUCTIONS: The patient was discharged home with home health services. Follow up with primary medical doctor. Chacho Barlow M.D. I have been assigned to dictate discharge summary on this account and I was not involved in the patient's management. Adrianna Kwonrama N.PRodriguez DR: HERMAN JOB#: [id number] CC: [place]
--- NOTE | 2017-02-06 23:16 | Cardiology Report ---
APPROVED REPORT EKG Measurement Heart [id number] Sinus tachycardia with 1st degree AV block Left anterior fascicular block Left ventricular hypertrophy with QRS widening and repolarization abnormality Abnormal ECG
== END 2017-01-31 17:45 | disposition home or self-care (01) | DRG 420 ==
LOC: EDBD 21:24 → EMR 21:36 → EDBEDREQ 23:32 → 4E 23:34 → EDBEDREQ 23:43
DX: E10.65 Type 1 diabetes mellitus with hyperglycemia (principal); G92 Toxic encephalopathy; E66.01 Morbid (severe) obesity due to excess calories; D63.8 Anemia in other chronic diseases classified elsewhere; Z79.4 Long term (current) use of insulin; I25.10 Atherosclerotic heart disease of native coronary artery without angina pectoris; Z95.5 Presence of coronary angioplasty implant and graft; I10 Essential (primary) hypertension; E78.5 Hyperlipidemia, unspecified; E03.9 Hypothyroidism, unspecified
CPT/HCPCS: 36415; 70450; 71010; 80053; 80202; 81003; 82140; 82550; 82553; 82728; 82746; 82962; 83036; 83540; 83550; 83605; 84484; 85025; 85610; 85730; 87040; 90630; 93005; 99285; J1815; S5561